=== PATIENT | male | born 1990 | race Caucasian/White ===

== ENCOUNTER → 2021-04-13 19:37 | Outpatient (CLI) | payer OTHER, SELFPAY | PROVIDERS: Visit Provider Nurse Practitioner Family | DX: Z20.822 Contact with and (suspected) exposure to COVID-19 (principal) | CPT/HCPCS: C9803; U0003; U0005 ==

== ENCOUNTER 2024-03-24 11:53 | Outpatient (CLI) | payer BC, SELFPAY ==
[2024-03-24 12:34] LABS: Basophils # 0.1 K/mm3 (0-0.2); Basophils % 1.3 % (0.1-2.0); Eosinophils # 0.6 K/mm3 (0.0-0.4); Eosinophils % 10.5 % (0.1-12.0); Hematocrit 44.7 % (42.0-52.0); Hemoglobin 15.1 g/dL (14.1-18.0); Lymphocytes # 2.2 K/mm3 (0.7-4.5); Lymphocytes % 38.6 % (10-50); Mean Corpuscular HGB Conc 33.7 g/dL (31.8-35.4); Mean Corpuscular Hemoglobin 29.7 pg (27.0-31.2); Mean Corpuscular Volume 88.2 fl (80-94); Mean Platelet Volume 7.6 fl (7.4-10.4); Monocytes # 0.4 K/mm3 (0.1-1.0); Monocytes % 6.7 % (1.7-9.3); Neutrophils # 2.5 K/mm3 (1.8-7.8); Platelet Count 255 K/mm3 (142-424); Red Blood Count 5.07 M/mm3 (4.60-6.20); Red Cell Distribution Width 13.1 % (11.5-17.5); White Blood Count 5.7 K/mm3 (4.8-10.8)
[2024-03-24 12:52] LABS: Activated Partial Thrombo Time 28.6 seconds (22.8-30.6); Fibrinogen 305 mg/dL (229.9-363.5); INR 0.96 (0.9-1.1); Prothrombin Time 10.8 seconds (10.1-12.5)
[2024-03-24 13:06] LABS: Albumin Level 4.5 g/dl (3.5-5.0); Chloride 107 mmol/L (98-107); Potassium 4.4 mmoL/L (3.5-5.1); Sodium 140 mmol/L (136-145)
[2024-03-24 13:09] LABS: Alanine Aminotransferase 61 U/L (12-78); Alkaline Phosphatase 70 U/L (38-126); Anion Gap 11.4 mEq/L (5-15); Aspartate Amino Transferase 59 U/L (17-59); Bilirubin,Total 0.5 mg/dl (0.2-1.3); Blood Urea Nitrogen 16 mg/dl (9-20); Carbon Dioxide 26 mmol/L (22.0-30.0); Cholesterol 217 mg/dl (140-200); Estimated Glomerular Filt Rate 87 ml/min (>60); GFR (African American) 105 ML/MIN (>60); Globulin 2.3 g/dL (1.3-3.2); Total Protein,Serum 6.8 g/dl (6.3-8.2); Triglycerides 173 mg/dl (30-150); VLDL Cholesterol 35 mg/dL (0-40)
[2024-03-24 13:10] LABS: Calcium 9.6 mg/dl (8.4-10.2); Chol/HDL Ratio 4.7 (1-3.5); Glucose 95 mg/dl (74-100); HDL Cholesterol 46 mg/dl (40-60)
[2024-03-24 13:21] LABS: Direct LDL Cholesterol 131.34 mg/dL (100-129)
[2024-03-24 13:26] LABS: 25-OH Vitamin D, Total 20.5 ng/mL (30-100)
[2024-03-24 13:29] LABS: HIV (1&2) Antibody Rapid NONREACTIVE (NONREACTIVE)
[2024-03-24 13:38] LABS: Thyroid Stimulating Hormone 1.24 uIU/mL (0.465-4.68)
[2024-03-24 14:15] LABS: Hemoglobin A1C 5.5 % (4.0-6.0)
[2024-03-25 09:16] LABS: HCV Ab Non Reactive (Non Reactive)
[2024-03-26 12:02] LABS: Peripheral Smear Review Scanned Result
[2024-03-26 15:10] LABS: Anti-Thrombin III Antigen 88 % (72-124); Antithrombin Activity 124 % (75-135); Factor V Activity 123 % (70-150); Protein C Functional 142 % (73-180); Protein S Functional 168 % (63-140)
== END 2024-03-24 23:59 | disposition home or self-care (01) ==
LOC: LAB 11:56
PROVIDERS: PCP Student in an Organized Health Care Education/Training Program; Visit Provider Student in an Organized Health Care Education/Training Program
DX: R07.89 Other chest pain (principal); R55 Syncope and collapse; E55.9 Vitamin D deficiency, unspecified; Z83.2 Family history of diseases of the blood and blood-forming organs and certain disorders involving the immune mechanism; Z13.21 Encounter for screening for nutritional disorder; Z13.29 Encounter for screening for other suspected endocrine disorder; Z13.1 Encounter for screening for diabetes mellitus; Z13.220 Encounter for screening for lipoid disorders; Z11.59 Encounter for screening for other viral diseases; Z11.4 Encounter for screening for human immunodeficiency virus [HIV]
CPT/HCPCS: 36415; 80050; 80053; 80061; 81241; 82306; 83036; 84443; 85025; 85220; 85300; 85301; 85302; 85306; 85384; 85610; 85730; 86803; 87389

== ENCOUNTER 2024-03-26 09:57 | Outpatient (CLI) | payer BC, SELFPAY ==
--- NOTE | 2024-03-26 10:02 | CA_ITS ---
FINAL REPORT TECHNIQUE: Color Doppler, duplex Doppler and compression sonography of the right lower extremity venous system was performed. CLINICAL HISTORY: family history of clotting factor 5 leiden (father, grandfather, uncle, and younger sibling). Right leg pain x 6 months primarily in the calf. COMPARISON: None FINDINGS: There is no evidence of deep venous thrombosis in the right lower extremity from the level of the groin to the calf. The veins are patent and compressible. IMPRESSION: No evidence of deep venous thrombosis right lower extremity. Reviewed, Interpreted and Dictated by Marco A Valero III, MD Transcribed by Agnes Nice Authenticated and [facility]
== END 2024-03-26 23:59 | disposition home or self-care (01) ==
LOC: RT 09:58
PROVIDERS: PCP Student in an Organized Health Care Education/Training Program; Visit Provider Student in an Organized Health Care Education/Training Program
DX: M79.604 Pain in right leg (principal); Z83.2 Family history of diseases of the blood and blood-forming organs and certain disorders involving the immune mechanism
CPT/HCPCS: 93971

== ENCOUNTER 2024-04-15 10:46 | Outpatient (RCR) | payer BC, SELFPAY | END 2024-04-15 23:59 | disposition home or self-care (01) | LOC: PT 10:46 | PROVIDERS: Visit Provider Neuromusculoskeletal Medicine, Sports Medicine | DX: M79.652 Pain in left thigh (principal); M79.671 Pain in right foot; M79.672 Pain in left foot; S72.322A Displaced transverse fracture of shaft of left femur, initial encounter for closed fracture; S92.301A Fracture of unspecified metatarsal bone(s), right foot, initial encounter for closed fracture; S92.302A Fracture of unspecified metatarsal bone(s), left foot, initial encounter for closed fracture | CPT/HCPCS: 97163 ==

== ENCOUNTER 2024-06-11 14:00 | Outpatient (RCR) | payer BC, SELFPAY | END 2024-06-11 23:59 | disposition home or self-care (01) | LOC: PT 14:00 | PROVIDERS: Visit Provider Neuromusculoskeletal Medicine, Sports Medicine | DX: M25.512 Pain in left shoulder (principal); M89.8X1 Other specified disorders of bone, shoulder; M25.552 Pain in left hip; M25.562 Pain in left knee; M25.572 Pain in left ankle and joints of left foot; S92.301A Fracture of unspecified metatarsal bone(s), right foot, initial encounter for closed fracture; S92.302A Fracture of unspecified metatarsal bone(s), left foot, initial encounter for closed fracture; S72.322A Displaced transverse fracture of shaft of left femur, initial encounter for closed fracture | CPT/HCPCS: 97110; 97116; 97163; 97530 ==

== ENCOUNTER 2024-07-10 14:00 | Outpatient (RCR) | payer BC, SELFPAY | END 2024-07-10 23:59 | disposition home or self-care (01) | LOC: PT 14:00 | PROVIDERS: Visit Provider Neuromusculoskeletal Medicine, Sports Medicine | DX: M89.8X1 Other specified disorders of bone, shoulder (principal); S92.301A Fracture of unspecified metatarsal bone(s), right foot, initial encounter for closed fracture; S92.302A Fracture of unspecified metatarsal bone(s), left foot, initial encounter for closed fracture; S72.322A Displaced transverse fracture of shaft of left femur, initial encounter for closed fracture | CPT/HCPCS: 97110; 97164; 97530 ==

== ENCOUNTER 2024-08-12 13:00 | Outpatient (RCR) | payer BC, SELFPAY | END 2024-08-12 23:59 | disposition home or self-care (01) | LOC: PT 13:00 | PROVIDERS: Visit Provider Neuromusculoskeletal Medicine, Sports Medicine | DX: M89.8X1 Other specified disorders of bone, shoulder (principal); S92.301A Fracture of unspecified metatarsal bone(s), right foot, initial encounter for closed fracture; S92.302A Fracture of unspecified metatarsal bone(s), left foot, initial encounter for closed fracture; S72.322A Displaced transverse fracture of shaft of left femur, initial encounter for closed fracture | CPT/HCPCS: 97110; 97164; 97530 ==

== ENCOUNTER 2024-08-21 13:00 | Outpatient (RCR) | payer BC, SELFPAY | END 2024-08-21 23:59 | disposition home or self-care (01) | LOC: PT 13:00 | PROVIDERS: Visit Provider Physician Assistant | DX: M89.8X1 Other specified disorders of bone, shoulder (principal) | CPT/HCPCS: 97110; 97530 ==

== ENCOUNTER 2024-09-17 13:57 | Outpatient (RCR) | payer BC, SELFPAY | END 2024-09-17 23:59 | disposition home or self-care (01) | LOC: PT 13:57 | PROVIDERS: Visit Provider Neuromusculoskeletal Medicine, Sports Medicine | DX: M89.8X1 Other specified disorders of bone, shoulder (principal); S92.301A Fracture of unspecified metatarsal bone(s), right foot, initial encounter for closed fracture; S92.302A Fracture of unspecified metatarsal bone(s), left foot, initial encounter for closed fracture; S72.322A Displaced transverse fracture of shaft of left femur, initial encounter for closed fracture; X58.XXXA Exposure to other specified factors, initial encounter | CPT/HCPCS: 97110; 97164 ==

== ENCOUNTER 2025-02-16 13:13 | Outpatient (CLI) | payer BC, SELFPAY ==
--- OUTSIDE RECORDS SUMMARY | 2025-02-05 08:50 | XMS_ITS | Encounter Summary ---
Author Organization [facility] Address [address] [place] [address] Care Team Providers Care Landscape Photographer Name Role Phone Maddie Melendrez APRN Primary Care Provider [phone] Reason for Referral * Consultation (Routine) - Authorized Specialty Diagnoses / Procedures Referred By Keyannaac t Referred To Contact Physical Therapy Diagnoses Closed displaced transverse fracture of shaft of left femur with routine healing, subsequent encounter Jonah Miller MD [id number] [place] [address] Phone: tel: fax: Referral ID Status Reason Start Date Expiration Date Visits Requested Visits Authorized [id number] Authorized Consult and Treat 02/05/2025 08/07/2026 1 1 Reason for Visit * Reason Comments Follow-up Follow-up Encounter Details Date Type Department Care Team (Late st Contact Info) Description 02/05/2025 9:50 AM EDT Office Visit [facility] Orthopa[facility] Surgery & Sports Medicine [address], [address] [place] [address] Jonah Miller MD [address] [facility] [address] [phone] Closed displaced transverse fracture of shaft of left femur with routine healing, subsequent encounter (Primary Dx) Social History Tobacco Use Types Packs/Day Years Used Date Smoking Tobacco: Never Smokeless Tobacco: Never Alcohol Use Standard Drinks/Week Comments Not Currently 0 (1 standard drink = 0.6 oz pur e alcohol) Humiliation, Afraid, Rape, and Kick questionnair e Answer Date Recorded Within the last year, have y ou been afraid of your partner or ex-partner? No 03/28/2024 Within the last year, have y ou been humiliated or emotionally abused in other ways by your partner or ex-partner? No Within the last year, have y ou been kicked, hit, slapped, or otherwise physically hurt by your partner or ex-partner? No 03/28/2024 Within the last year, have y ou been raped or forced to have any kind of sexual activity by your partner or ex-partner? No 03/28/2024 PHQ-2 Answer Date Recorded Patient Health Questionnaire-2 Score 0 05/21/2024 Hunger Vital Sign Answer Date Recorded Within the past 12 months, y ou worried that your food would run out before you got the money to buy more. Never true 03/28/20 24 Within the past 12 months, t he food you bought just didn't last and you didn't have money to get more. Never true 03/28/2024 PRAPARE - Transportation Answer Date Re corded In the past 12 months, has l ack of transportation kept you from medical appointments or from getting medications? No 03/16 In the past 12 months, has l ack of transportation kept you from meetings, work, or from getting things needed for daily living? No 03/28/2024 PHQ-9 Answer Date Recorded Patient Health Questionnaire-9 Score 0 05/21/2024 Housing Stability Vital Sign Answer Pan e Recorded In the last 12 months, was t here a time when you were not able to pay the mortgage or rent on time? No 03/28/2024 In the past 12 months, how m any times have you moved where you were living? 1 03/28/2024 At any time in the past 12 m [facility], were you homeless or living in a senior care (including now)? No 03/28/2024 Utilities Answer Date Recorded In the past 12 months has th e electric, gas, oil, or water company threatened to shut off services in your home? No 03/28/2024 Sex and Gender Information Value Date Recorded Sex Assigned at Not on file Legal Sex Male 8:01 PM EDT Gender Identity Not on file Sexual Orientation Not on file documented as of this encounter Last Filed Vital Signs Vital Sign Reading Time Taken Comments Blood Pressure 135/82 02/05/2025 10:05 AM EDT Pulse 86 02/05/2025 10:05 AM EDT Temperature 36.3 C (97.3 F) 02/05/2025 10:05 AM EDT Respiratory Rate - - Oxygen Saturation 95% 02/05/2025 10:05 AM EDT Inhaled Oxygen Concentration - - Weight 111 kg (245 lb) 02/05/2025 10:05 AM EDT Height 182.9 cm (6') 02/05/2025 10:05 AM EDT Body Mass Index 33.23 02/05/2025 10:05 AM EDT documented in this encounter Miscellaneous Notes * Progress Notes - Jeet Gallegos MD - 02/05/2025 9:50 AM EDT ORTHOPEDIC TRAUMA CLINIC NOTE Inj: s/p nonunion repair left clavicle with autograft DOS: 10/08/2024 S/p IMN insertion for Left femoral shaft fracture (03/27/24) Date LS: 12/01/24 Prior Plan: AAT, PT strengthening Interval History: Patient has been doing well since the last visit but does still complain of some residual stiffness and hypersensitivity of the left shoulder. Stiffness with above head activities and numbness and paresthesias over his surgical site on the scapula. He also reports that he did not ever returned back to his [employer] job and they have let him go. Exam: Left upper extremity Surgical incision is well healed, no erythema or drainage Patient has some paresthesias about the incision Motor: EPL, FPL, FDS, IO intact Sensory: SILT A/M/U/R. Vascular: Radial Pulse 2+. Hand WWP with CR <2 sec Left Lower Extremity: Weakness of hip abduction TTP about greater trochanter and distal lateral femoral condyle Knee flexion and extension TA/GSC/EHL/FHL SILT DP/SP/Sural/Saph/Tib nerve dist. cap refill <2sec, toes wwp My independent interpretation of radiographic testing shows: No signs of hardware failure or new fracture the left femur or left scapula. There is also intervalhealing of both with bony remodeling visible. Notes reviewed: ortho trauma Results of tests reviewed: previous radiographs Assessment and plan: Closed displaced transverse fracture of shaft of left femur with routine healing, subsequent encounter Orders Placed This Encounter XR Shoulder Left 2+ Views XR Femur Left 2+ Views Physical Therapy (outgoing) Follow up in about 3 months (around 05/08/2025) for With Imaging (L shoulder, L femur) , With Imaging. Patient can be activity as tolerated. We will prescribe him physical therapy with focus on strengthening of his abductors as well as range of motion and he will see us back in 3 months with repeat x-rays. All questions were answered to the patient's satisfaction Cosigned by Jonah Miller MD at 02/09/2025 10:16 PM EDT Associated attestation - Jonah Miller MD - 02/09/2025 10:16 PM EDT I saw and evaluated the patient with the resident/fellow. I discussed the case with the resident/fellow and agree with the findings and plan as documented. Jonah Miller MD documented in this encounter Plan of Treatment Upcoming Encounters Date Type Department Care Team (Late st Contact Info) Description 05/14/2025 10:20 AM EST Office Visit [facility] Orthopaedic Surgery & Sports Medicine [address] [place] [address] Jonah Miller MD [address] [place] [address] Scheduled Orders Name Type Priority Associated Diagnoses Orde r Schedule XR Shoulder Left 2+ Views Imaging Routine Closed displaced transverse fracture of shaft of left femur with routine healing, subsequent encounter Expected: 05/08/2025 (Approximate), Expires: 08/09/2026 XR Femur Left 2+ Views Imaging Routine Closed displaced transverse fracture of shaft of left femur with routine healing, subsequent encounter Expected: 05/08/2025 (Approximate), Expires: 08/09/2026 Scheduled Referrals Name Type Priority Associated Diagnoses Orde r Schedule Physical Therapy (outgoing) Outpatient Referral Routine Closed displaced transverse fracture of shaft of left femur with routine healing, subsequent encounter Expected: 05/08/2025, Expires: 08/09/2026 documented as of this encounter Visit Diagnoses Diagnosis Closed displaced transverse fracture of shaft of left femur with routine healing, subsequent encounter- Primary documented in this encounter Additional Health Concerns Assessment Noted Time PHQ-9 Depression Total Score: 0 05/21/19 25 11:08 AM EST A fall risk assessment has been complete d for the patient 02/05/2025 10:05 AM EDT A Body Mass Index follow-up plan has been documented for the patient 02/09/2025 10:16 PM EDT documented as of this encounter Care Teams Landscape Photographer Relationship Specialty Start Date End Date Maddie Melendrez APRN [address] [place] [address] PCP - General 10/22/24 documented as of this encounter
--- OUTSIDE RECORDS SUMMARY | 2025-02-05 09:10 | XMS_ITS | Encounter Summary ---
Author Organization [facility] Address [address] 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 No 03/28/2024 Utilities Answer Date Recorded In the past 12 months has th e [employer], gas, oil, or water company threatened to shut off services in your home? No 03/28/2024 Sex and Gender Information Value Date Recorded Sex Assigned at Not on file Legal Sex Male 8:01 PM EDT Gender Identity Not on file Sexual Orientation Not on file documented as of this encounter Medications at Time of Discharge acetaminophen (Tylenol Extra Strength) 500 MG tablet Take 2 tablets by mouth every 6 hours as needed for pain. 100 tablet 10/08/2024 bacitracin, 14-30g tube, 500 UNIT/GM ointment Apply to facial lacerations daily 14 g 04/02/2024 baclofen (Lioresal) 10 MG tablet 04/28/2024 clindamycin (Cleocin) 300 MG capsule 08/26/2024 methocarbamol (Robaxin) 500 MG tablet Take 1 tablet by mouth 4 times a day as needed for muscle spasms. 40 tablet 10/08/2024 naloxone (Narcan) 4 mg/0.1 mL nasal spray 1. Give 1 spray in nostril for no/slow breathing or cannot wake after opioid use 2. Call 911 3. Repeat in other nostril if symptoms continue 1 each 04/02/2024 senna-docusate sodium (Senokot-S) 8.6-50 MG tablet Take 1 tablet by mouth 2 times a day. 30 tablet 10/08/2024 tobramycin-dexam ethasone (Tobradex) ophthalmic suspension One drop to left ear once at 2200 today to finish recommended course 04/02/2024 albuterol 108 (90 Base) MCG/ACT inhaler Inhale 2 puffs 4 (four) times a day if needed for wheezing. 1 each 04/02/2024 documented as of this encounter Plan of Treatment Upcoming Encounters Date Type Department Care Team (Late st Contact Info) Description 05/14/2025 10:20 AM EST Office Visit [facility] Orthopaedic Surgery & Sports Medicine [address] [place] [address] Jonah Miller MD [address] [place] [address] documented as of this encounter Procedures Procedure Name Priority Date/Time Associated Diagnosis Comments XR FEMUR LEFT 2+ VIEWS Routine 02/05/2025 10:23 AM EDT Pain of left clavicle Pain of left femur XR CLAVICLE LEFT Routine 02/05/2025 10:2 3 AM EDT 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 No evidence of hardware complication of the left femur with healing fracture. CRITICAL RESULT: No. COMMUNICATION: Per this written report. By electronically signing this report, I, the attending physician, attest that I have personally reviewed the images/data for the above examination(s) and agree with the final edited report. Drafted by Dean Dowling MD on 02/05/2025 11:14 AM Final report signed by Roselyn [place] MD on 02/05/2025 5:06 PM Narrative 02/05/2025 5:06 PM EDT CLINICAL INDICATION: pain TECHNIQUE: XR CLAVICLE LEFT COMPARISON: Left clavicle radiographs dated 12/01/2024, left femur radiographs from 08/27/2024 FINDINGS: Left clavicle: Redemonstrated postsurgical changes with plate and screw fixation of prior midclavicular fracture with similar near-anatomic alignment and interval sclerosis and callus formation. No evidence of hardware loosening or failure. No new fractures. No acute subluxation or dislocation. Partially imaged lung and chest wall are normal. Left femur: Intramedullary nail screw fixation of the left femur. No evidence of hardware loosening or failure. Similar alignment of the proximal femoral diaphyseal fracture with continued healing. The hip and knee joints appear grossly intact. Procedure Note Roselyn [place] MD - 02/05/2025 CLINICAL INDICATION: pain TECHNIQUE: XR CLAVICLE LEFT COMPARISON: Left clavicle radiographs dated 12/01/2024, left femur radiographs from08/27/2024 FINDINGS: Left clavicle: Redemonstrated postsurgical changes with plate and screwfixation of prior midclavicular fracture with similar near-anatomicalignment and interval sclerosis and callus formation. No evidence ofhardware loosening or failure. No new fractures. No acute subluxation ordislocation. Partially imaged lung and chest wall are normal. Left femur: Intramedullary nail screw fixation of the left femur. Noevidence of hardware loosening or failure. Similar alignment of theproximal femoral diaphyseal fracture with continued healing. The hip andknee joints appear grossly intact. IMPRESSION: Redemonstrated postsurgical changes of plate and screw fixation of midleft clavicular fracture with similar near anatomic alignment and intervalprogression of healing without evidence of hardware complication. No evidence of hardware complication of the left femur with healingfracture. CRITICAL RESULT: No. COMMUNICATION: Per this written report. By electronically signing this report, I, the attending physician, attestthat I have personally reviewed the images/data for the aboveexamination(s) and agree with the final edited report. Drafted by Dean Dowling MD on 02/05/2025 11:14 AM Final report signed by Roselyn [place] MD on 02/05/2025 5:06 PM us Jonah Miller MD IMG XR PROCEDURES Final Re sult * XR Femur Left 2+ Views (02/05/2025 10:23 AM EDT) Anatomical Region Laterality Modality Lower Extremities, Femur Left Digital Radiography Impressions 02/05/2025 5:38 PM EDT Redemonstration of ORIF of healing proximal femoral fracture in unchanged alignment with no evidence of hardware loosening or failure. CRITICAL RESULT: No. COMMUNICATION: Per this written report. By electronically signing this report, I, the attending physician, attest that I have personally reviewed the images/data for the above examination(s) and agree with the final edited report. Drafted by Dean Dowling MD on 02/05/2025 11:18 AM Final report signed by Oscar Samayoa on 02/05/2025 5:38 PM Narrative 02/05/2025 5:38 PM EDT CLINICAL INDICATION: pain TECHNIQUE: XR FEMUR LEFT 2+ VIEWS COMPARISON: Left femur radiographs dated 08/27/2024 FINDINGS: Redemonstration of ORIF of proximal femoral fracture with intramedullary nail and femoral neck screws. There is been increased callus formation and blurring of the fracture line consistent with healing. No newly visualized fractures. No evidence for loosening or failure. No significant residual soft tissue swelling. No newly visualized fractures. Procedure Note Oscar Samayoa MD - 02/05/2025 CLINICAL INDICATION: pain TECHNIQUE: XR FEMUR LEFT 2+ VIEWS COMPARISON: Left femur radiographs dated 08/27/2024 FINDINGS: Redemonstration of ORIF of proximal femoral fracture with intramedullarynail and femoral neck screws. There is been increased callus formation andblurring of the fracture line consistent with healing. No newly visualizedfractures. No evidence for loosening or failure. No significant residualsoft tissue swelling. No newly visualized fractures. IMPRESSION: Redemonstration of ORIF of healing proximal femoral fracture in unchangedalignment with no evidence of hardware loosening or failure. CRITICAL RESULT: No. COMMUNICATION: Per this written report. By electronically signing this report, I, the attending physician, ralf I have personally reviewed the images/data for the aboveexamination(s) and agree with the final edited report. 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
[2025-02-16 13:05] LABS: Microscopic, Urine URINE MICROSCOPIC (MICROSCOPIC)
--- OUTSIDE RECORDS SUMMARY | 2025-02-16 13:19 | XMS_ITS | Referral Summary ---
Author Organization [employer] ([place], [place], [place], [place], [place]) Address [address] [place] [address] Care Team Providers Care Filter Press Tender Head Name Role Phone Unavailable Primary Care Provider Unavailabl e Social History Tobacco Use Types Packs/Day Years Used Date Smoking Tobacco: Never Assessed Sex and Gender Information Value Date Recorded Sex Assigned at Not on file Legal Sex Male 6:57 PM CDT Gender Identity Not on file Sexual Orientation Not on file Plan of Treatment Not on file
--- OUTSIDE RECORDS SUMMARY | 2025-02-16 13:19 | XMS_ITS | Encounter Summary ---
Author Organization [facility] Address [address] [place] [address] Care Team Providers Care Scale And Skip Car Operator Name Role Phone Beata Melendez Primary Care Provider [phone] Maddie Melendrez APRN Primary Care Provider [phone] Encounter Details Date Type Department Care Team (Late st Contact Info) Description 04/18/2024 Education [facility] General Surgery [address], [address] [place] [id number] Olesya Montes, LEATHER STRIPPING MACHINE OPERATOR & ACUTE CARE SURG [facility] ACUTE T1 Social History Tobacco Use Types Packs/Day Years [...] Date Recorded Patient Health Questionnaire-2 Score 0 04/11/2024 Hunger Vital Sign Answer Date Recorded Within [...] things needed for daily living? No 03/28/2024 Housing Stability Vital Sign Answer Pan e Recorded In the last 12 months, was t here a time when you were not able to pay the mortgage or rent on time? No 03/28/2024 In the past 12 months, how m any times have you moved where you were living? 1 03/28/2024 At any time in the past [address] [facility], were you homeless or living in [...] on file documented as of this encounter Plan of Treatment Upcoming Encounters Date Type Department Care Team (Late st Contact Info) Description 05/14/2025 10:20 AM EST Office Visit [facility] [address] [place] [address] Jonah Miller MD [address] [place] [address] documented as of this encounter Visit Diagnoses Not on filedocumented in this encounter Additional Health Concerns Assessment Noted Time A fall risk assessment has been complete d for the patient 04/11/2024 9:36 AM EST A Body Mass Index follow-up plan has been documented for the patient 04/11/2024 10:54 AM EST documented as of this encounter Care Teams Scale And Skip Car Operator Relationship Specialty Start Date End Date Beata Melendez PA [address] [place] [address] PCP - General 03/26/24 10/21/24 Maddie Melendrez APRN [address] [place] [address] PCP - General 10/22/24 documented as of this encounter
--- OUTSIDE RECORDS SUMMARY | 2025-02-16 13:19 | XMS_ITS | Encounter Summary ---
Author Organization [facility] Address [address] [place] [address] Care Team Providers Care Antique Dealer Name Role Phone Maddie Melendrez APRN Primary Care Provider [phone] Encounter Details Date Type Department Care Team (Latest Contact Info) Description 02/05/2025 Travel Social History Tobacco Use Types Packs/Day Years [...] any time in the past 12 m [facility], were you homeless or living in a group home (including now)? No 03/28/2024 Utilities Answer Date [...] Description 05/14/2025 10:20 AM EST Office Visit [facility] Orthopaedic Surgery & Sports Medicine [address] [place] [address] Jonah Miller MD [address] [place] [phone] documented as of this encounter Visit Diagnoses [...] documented as of this encounter Care Teams Antique Dealer Relationship Specialty Start Date End Date Maddie Melendrez, SHIPPER/RECEIVER [address] [place] [address] PCP - General 10/22/24 documented as of this encounter
--- OUTSIDE RECORDS SUMMARY | 2025-02-16 13:19 | XMS_ITS | Clinical Summary ---
Author Organization [employer] ([place], [place], [place], [place], [place]) Address [address] [place] [address] Care Team Providers Care Inter Fold Roll Cutter Name Role Phone Unavailable Primary Care Provider [...]
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
[2025-02-16 13:32] LABS: Hematocrit 45.8 % (42.0-52.0); Hemoglobin 15.0 g/dL (14.1-18.0); Immature Granulocytes % 0.1 %; Mean Corpuscular HGB Conc 32.8 g/dL (31.8-35.4); Mean Corpuscular Hemoglobin 28.5 pg (27.0-31.2); Mean Corpuscular Volume 87.1 fl (80-94); Nucleated Red Blood Cells % 0 %; Platelet Count 279 K/mm3 (142-424); Red Blood Count 5.26 M/mm3 (4.60-6.20); Red Cell Distribution Width-SD 38.5 fL; White Blood Count 7.4 K/mm3 (4.8-10.8)
[2025-02-16 13:49] LABS: Bilirubin,Urine Negative (Negative); Color,Urine YELLOW (Yellow); Glucose,Urine (UA) Negative (Negative); Ketones,Urine Negative (Negative); Leukocyte Esterase,Urine Negative (Negative); PH,Urine 6.0 (5.0-8.5); Protein,Urine Negative (Negative); Specific Gravity, Urine 1.025 (1.005-1.030); Urobilinogen,Urine 0.2 EU/dl (0.2)
[2025-02-16 13:54] LABS: Hemoglobin A1C 5.5 % (4.0-6.0)
[2025-02-16 14:12] LABS: Alanine Aminotransferase 66 U/L (12-78); Albumin Level 5.0 g/dl (3.5-5.0); Albumin/Globulin Ratio 1.6 (1.1-1.8); Alkaline Phosphatase 86 U/L (38-126); Anion Gap 15.2 mEq/L (5-15); Aspartate Amino Transferase 55 U/L (17-59); Bilirubin,Total 0.4 mg/dl (0.2-1.3); Blood Urea Nitrogen 12 mg/dl (9-20); Calcium 9.5 mg/dl (8.4-10.2); Carbon Dioxide 24 mmol/L (22.0-30.0); Chloride 102 mmol/L (98-107); Cholesterol 272 mg/dl (140-200); Creatinine,Serum 1.00 mg/dl (0.66-1.25); Estimated Glomerular Filt Rate 87 ml/min (>60); GFR (African American) 105 ML/MIN (>60); Globulin 3.1 g/dL (1.3-3.2); Glucose 101 mg/dl (74-100); HDL Cholesterol 46 mg/dl (40-60); Magnesium 2.0 mg/dl (1.6-2.3); Phosphorous 3.6 mg/dl (2.5-4.5); Potassium 4.2 mmoL/L (3.5-5.1); Sodium 137 mmol/L (136-145); Total Protein,Serum 8.1 g/dl (6.3-8.2); Triglycerides 167 mg/dl (30-150)
[2025-02-16 14:27] LABS: Free T4 (Free Thyroxine) 0.95 ng/dl (0.78-2.19)
[2025-02-16 14:29] LABS: WBC,Urine Occasional #/hpf (0-3)
[2025-02-16 14:30] LABS: 25-OH Vitamin D, Total 28.7 ng/mL (30-100); Bacteria,Urine Trace /lpf; Squamous Epithelial Cell,Urine Occasional #/hpf (0-5)
[2025-02-16 14:43] LABS: Thyroid Stimulating Hormone 1.42 uIU/mL (0.465-4.68)
[2025-02-16 15:02] LABS: Vitamin B12 283 pg/mL (239-931)
== END 2025-02-16 23:59 | disposition home or self-care (01) ==
LOC: LAB.DROPOF 13:13
PROVIDERS: PCP Nurse Practitioner Family; Visit Provider Nurse Practitioner Family
DX: E55.9 Vitamin D deficiency, unspecified (principal); E11.9 Type 2 diabetes mellitus without complications; E78.5 Hyperlipidemia, unspecified; E66.9 Obesity, unspecified; Z76.89 Persons encountering health services in other specified circumstances; R53.1 Weakness; G43.109 Migraine with aura, not intractable, without status migrainosus; M54.9 Dorsalgia, unspecified; G89.29 Other chronic pain; G62.9 Polyneuropathy, unspecified; S42.002A Fracture of unspecified part of left clavicle, initial encounter for closed fracture; S06.0XAA Concussion with loss of consciousness status unknown, initial encounter; V89.2XXA Person injured in unspecified motor-vehicle accident, traffic, initial encounter; F32.A Depression, unspecified; F43.10 Post-traumatic stress disorder, unspecified; F41.9 Anxiety disorder, unspecified; I10 Essential (primary) hypertension; G47.33 Obstructive sleep apnea (adult) (pediatric)
CPT/HCPCS: 80053; 80061; 81001; 82306; 82607; 83036; 83735; 84100; 84439; 84443; 85025; 87086

== ENCOUNTER 2025-03-03 13:51 | Outpatient (RCR) | payer MEDICARE, SELFPAY | END 2025-03-03 23:59 | disposition home or self-care (01) | LOC: PT 13:51 | PROVIDERS: PCP Nurse Practitioner Family; Visit Provider Orthopaedic Surgery | DX: S72.322D Displaced transverse fracture of shaft of left femur, subsequent encounter for closed fracture with routine healing (principal); X58.XXXD Exposure to other specified factors, subsequent encounter | CPT/HCPCS: 97163 ==

== ENCOUNTER 2025-03-10 15:02 | Outpatient (CLI) | payer MEDICAID, SELFPAY ==
--- OUTSIDE RECORDS SUMMARY | 2025-02-05 08:50 | XMS_ITS | Encounter Summary ---
Author Organization [facility] Address [address] [place] [address] Care Team Providers Care Outboard Motor Assembler Name Role Phone Maddie Melendrez APRN Primary Care Provider [phone] Reason for Referral * Consultation (Routine) - Authorized Specialty Diagnoses / Procedures Referred By Keyannaac t Referred To Contact Physical Therapy Diagnoses Closed displaced transverse fracture of shaft of left femur with routine healing, subsequent encounter Jonah Miller MD [id number] [place] [address] Phone: tel: fax: Referral ID Status Reason Start Date Expiration Date Visits Requested Visits Authorized [id number] Authorized Consult and Treat 02/05/2025 08/07/2026 1 1 Reason for Visit * Reason Comments Follow-up Follow-up Encounter Details Date Type Department Care Team (Late st Contact Info) Description 02/05/2025 9:50 AM EDT Office Visit [facility] [address], [address] [place] [address] Jonah Miller MD [address] [facility] [address] [phone] Closed displaced transverse fracture of shaft of [...] in the past 12 m [facility], were you homeless or living in a penitentiary (including now)? No 03/28/2024 Utilities Answer Date [...] Description 05/14/2025 10:20 AM EST Office Visit [facility] Orthopaedic Surgery & Sports Medicine [address], [address] [place] [address] Jonah Miller MD [address] [place] [address] Scheduled Orders Name Type Priority Associated Diagnoses [...] documented as of this encounter Care Teams Outboard Motor Assembler Relationship Specialty Start Date End Date Maddie Melendrez APRN [address] [place] [address] PCP - General 10/22/24 documented as of this encounter
--- OUTSIDE RECORDS SUMMARY | 2025-02-05 09:10 | XMS_ITS | Encounter Summary ---
Author Organization [facility] Address [address] [place] [address] Care Team Providers Care Senior Game Advisor Name Role Phone Maddie Melendrez APRN Primary Care Provider [phone] Encounter Details Date Type Department Care Team (Latest Contact Info) Description 02/05/2025 10:10 AM EDT - 02/05/2025 11:59 PM EDT Hospital Encounter [place] [facility] [address], [address] [place] [address] Pain of left clavicle; Pain of left [...] any time in the past 12 m [facility], were you homeless or living in a snf (including now)? No 03/28/2024 Utilities Answer Date Recorded In the past 12 months has th e [employer], gas, oil, or water company threatened to [...] Description 05/14/2025 10:20 AM EST Office Visit [facility] Orthopaedic Surgery & Sports Medicine [address], [address] [place] [address] Jonah Miller MD [address] [place] [address] documented as of this encounter [...] documented as of this encounter Care Teams Senior Game Advisor Relationship Specialty Start Date End Date Maddie Melendrez APRN [address] [place] [address] PCP - General 10/22/24 documented as of this encounter
--- NOTE | 2025-03-10 15:00 | CT_ITS ---
FINAL REPORT TECHNIQUE: Multiple axial CT sections were performed from the foramen magnum to the vertex. Coronal reformatted images were also obtained. Precontrast and postcontrast injection images were obtained. This study was performed with technique to keep radiation doses as low as reasonably achievable, (ALARA). Individualized dose reduction techniques using automated exposure control or adjustment of mA and/or kV according to the patient size were employed. CLINICAL HISTORY: memory loss, brain fog, concussion, headaches FINDINGS: There is no mass effect or midline shift. There is no hydrocephalus. There is no intracranial hemorrhage. The posterior fossa is without acute abnormality. The basilar cisterns are preserved. There are mucous retention cysts or polyps in the bilateral maxillary sinuses. No acute osseous abnormality is identified. There is no abnormal contrast-enhancement. IMPRESSION: No acute intracranial abnormality. Reviewed, Interpreted and Dictated by Debbie Figueroa MD Transcribed by Marie Justin Authenticated and [facility]
--- OUTSIDE RECORDS SUMMARY | 2025-03-10 15:06 | XMS_ITS | Clinical Summary ---
Author Organization [facility] Address [address] [place] [address] Care Team Providers Care Intake Counselor Name Role Phone Aneesh Maddie Hoda ALVARADO Primary Care Provider [phone] Allergies No known active allergies Medications bacitracin, [...] - 02/05/2025 11:59 PM EDT Hospital Encounter [facility] Radiology [address], [address] [place] [address] Pain of left clavicle; Pain of left femur; Closed displaced fracture of shaft of left clavicle with malunion, subsequent encounter Discharge Disposition: Home or Self Care 02/05/2025 9:50 AM EDT Office Visit [facility] Orthopaedic Surgery & Sports Medicine [address], [address] [place] [address] Jonah Miller MD Closed displaced transverse fracture of shaft of left femur with routine healing, subsequent encounter (Primary Dx) 02/05/2025 Travel from Last 3 Months Immunizations Immunization [...] any time in the past 12 m [facility], were you homeless or living in a assisted (including now)? No 03/28/2024 Utilities Answer Date [...] Description 05/14/2025 10:20 AM EST Office Visit [facility] Orthopaedic Surgery & Sports Medicine [address], [address] [place] [address] Jonah Miller MD [address] [place] [address] Health Maintenance Due Date Last Done Comments [...] Screenings 09/26/2024 [facility]-Adult SDOH Screenings 09/26/2024 03/28/2024 [id number] Vaccine (1 - 2024- season) 2024 [facility]-Influenza Vaccine (#1) 2024 [facility]-Depression Screening 05/21/2025 05/21/2024, 0208/2024 [facility]-DTaP,Tdap,and Td Vaccines (3 - Td or [...] this topic Medical Devices Implanted Type Area High Risk Ob Device Identifier Shelf Expiration Date Model / Serial / Lot Plate Clavcl Superior Decrsd Crv Std 10hole Lt - Sn/A - [id number] Implanted:Qty : 1 on 10/08/2024 by Jonah Miller MD at [facility] Plate Left: Shoulder [employer] ([facility])-[id number] 68 10/08/2025 [id number] / N/A / N/A Plate Variax Broad Lock 2.7mm/10 Hole - Sn/A - [id number] Implanted:Qty : 1 on 10/08/2024 by Jonah Miller MD at [facility] Plate Left: Shoulder [employer] ([facility])-[id number] 68 10/08/2025 [id number] / N/A / N/A Screw 5x37.5mm Ti [employer] Sergio Locking [employer] - [id number] Implanted:Qty : 1 on 03/27/2024 by Mehul Mckeon MD at [facility] Screw Left: Femur [employer]-[id number] 03/27/2025 1257.8338 / / Screw 5x40mm Ti [employer] Sergio Locking - [id number] Implanted:Qty : 1 on 03/27/2024 by Mehul Mckeon MD at [facility] Screw Left: Femur [employer]-[id number] 03/27/2025 1257.8340 / / Screw 2.7mm Bone T8 Full Thread L14mm - Sn/A - [id number] Implanted:Qty : 1 on 10/08/2024 by Jonah Miller MD at [facility] Screw Left: Shoulder [employer] ([facility])-1391 68 10/08/2025 [id number] / N/A / N/A Screw 2.7mm Bone T8 Full Thread L16mm - Sn/A - [id number] Implanted:Qty : 2 on 10/08/2024 by Jonah Miller MD at [facility] Screw Left: Shoulder [employer] ([facility])-1391 68 10/08/2025 [id number] / N/A / N/A Screw 2.7mm#Locking T8 Full Thread L18mm - Sn/A - [id number] Implanted:Qty : 1 on 10/08/2024 by Jonah Miller MD at [facility] Screw Left: Shoulder [employer] ([facility])-1391 68 10/08/2025 [id number] / N/A / N/A Screw 2.7mm#Locking T8 Full Thread L22mm - Sn/A - [id number] Implanted:Qty : 1 on 10/08/2024 by Jonah Miller MD at [facility] Screw Left: Shoulder [employer] ([facility])-1391 68 10/08/2025 [id number] / N/A / N/A Screw 2.7mm#Locking T8 Full Thread L14mm - Sn/A - [id number] Implanted:Qty : 1 on 10/08/2024 by Jonah Miller MD at [facility] Screw Left: Shoulder [employer] ([facility])-1391 68 10/08/2025 [id number] / N/A / N/A Screw 2.7mm#Locking T8 Full Thread L16mm - Sn/A - [id number] Implanted:Qty : 1 on 10/08/2024 by Jonah Miller MD at [facility] Screw Left: Shoulder [employer] ([facility])-1391 68 10/08/2025 [id number] / N/A / N/A Screw 2.7mm#Locking T8 Full Thread L12mm - Sn/A - [id number] Implanted:Qty : 1 on 10/08/2024 by Jonah Miller MD at [facility] Screw Left: Shoulder [employer] ([facility])-1391 68 10/08/2025 [id number] / N/A / N/A Screw 3.5mm Bone T10 Full Thread L14mm - Sn/A - [id number] Implanted:Qty : 1 on 10/08/2024 by Jonah Miller MD at [facility] Screw Left: Shoulder [employer] ([facility])-1391 68 10/08/2025 [id number] / N/A / N/A Screw 3.5mm Bone T10 Full Thread L12mm - Sn/A - [id number] Implanted:Qty : 1 on 10/08/2024 by Jonah Miller MD at [facility] Screw Left: Shoulder [employer] ([facility])-1391 68 10/08/2025 [id number] / N/A / N/A Screw 3.5mm#Locking T10 Full Thread L16mm - Sn/A - [id number] Implanted:Qty : 3 on 10/08/2024 by Jonah Miller MD at [facility] Screw Left: Shoulder [employer] ([facility])-1391 68 10/08/2025 [id number] / N/A / N/A Screw 3.5mm#Locking T10 Full Thread L12mm - Sn/A - [id number] Implanted:Qty : 1 on 10/08/2024 by Jonah Miller MD at [facility] Screw Left: Shoulder [employer] ([facility])-1391 68 10/08/2025 [id number] / N/A / N/A Screw 3.5mm#Locking T10 Full Thread L20mm - Sn/A - [id number] Implanted:Qty : 1 on 10/08/2024 by Jonah Miller MD at [facility] Screw Left: Shoulder [employer] ([facility])-1391 68 10/08/2025 [id number] / N/A / N/A Screw 3.5mm#Locking T10 Full Thread L14mm - Sn/A - [id number] Implanted:Qty : 1 on 10/08/2024 by Jonah Miller MD at [facility] Screw Left: Shoulder [employer] ([facility])-1391 68 10/08/2025 [id number] / N/A / N/A Guidewire Drill-Point 3.2mm 400mm [employer] - S. - [id number] Implanted:Qty : 3 on 03/27/2024 by Mehul Mckeon MD at [facility] Wire Left: Femur [employer]-[id number] 03/27/2025 6257.0022 / . / Nail Antgr Femoral 76j130bn Gt Lt Ti - [id number] Implanted:Qty : 1 on 03/27/2024 by Mehul Mcekon MD at [facility] Left: Femur [employer]-[id number] 03/21/2032 1257.3140S / / [id number] Screw Recon Locking 92l39ak Ti - [id number] Implanted:Qty : 2 on 03/27/2024 by Mehul Mckeon MD at [facility] Left: Femur [employer]-[id number] 03/27/2025 1257.9190 / / ?Guidewire 3.2mm Drill-Point 285mm [employer] - [id number] Implanted:Qty : 1 on 03/27/2024 by Mehul Mckeon MD at [facility] Left: Femur [employer]-[id number] 03/27/2025 6257.0032 / / Tissue Pliafix Prime Dbm 5c - [id number] - [id number] Implanted:Qty : 1 on 10/08/2024 by Jonah Miller MD at [facility] Left: [id number] 08/20/2029 [id number] / [id number] / [id number] Procedures Procedure Name Priority Date/Time Associated Diagnosis Comments XR CLAVICLE LEFT Routine 02/05/2025 10:2 3 AM EDT Closed displaced fracture of shaft of left clavicle with malunion, subsequent encounter XR FEMUR LEFT 2+ VIEWS Routine 10:23 AM EDT Pain of left clavicle Pain of left femur HEPATITIS C ANTIBODY - ED W/REFLEX TO [...] HIV 1/2 Differentiation (03/26/2024 2:12 PM EST) HIV 1 & 2 Antibody/Antigen Screen Non Reactive Non Reactive 03/26/2024 3:09 PM EST [facility] Comment:Screening for HIV 1 & 2 antibodies, and P24 antigen is NONREACTIVE. No confirmatory testing is required. Blood Venous blood specimen / Unknown Venipuncture / Unknown 03/26/2024 2:12 PM EST 03/26/2024 2:26 PM EST us Robert Trammell MD LAB BLOOD ORDERABLES Final Result [facility] [address] [place] [address] * Hepatitis C Antibody - ED (03/26/2024 2:12 PM EST) Hepatitis C Antibody Negative Negative 03/26/2024 3:09 PM EST [facility] Blood Venous blood specimen / Unknown Venipuncture / Unknown 03/26/2024 2:12 PM EST 03/26/2024 2:26 PM EST us Robert Trammell MD LAB BLOOD ORDERABLES Final Result [facility] [address] [place] [address] from Last 3 Months or Most Recently Relevant to Health Maintenance Insurance [employer] [place] Advance Directives * Full Code (Latest Code Status on File) Date Activated Date Inactivated Comments 03/26/2024 8:29 PM 04/02/2024 8:42 PM Question Answer Comments Patient has decision-making capacity? Yes Care Teams Intake Counselor Relationship Specialty Start Date End Date Maddie Melendrez, CHRISTIANO [address] [place] [address] PCP - General 10/22/24
--- OUTSIDE RECORDS SUMMARY | 2025-03-10 15:06 | XMS_ITS | Encounter Summary ---
Author Organization [facility] Address [address] [place] [address] Care Team Providers Care Truck Assembler Name Role Phone Maddie Melendrez APRN Primary Care Provider [phone] Encounter Details Date Type Department Care Team [...] any time in the past 12 m [facility], were you homeless or living [...] Description 05/14/2025 10:20 AM EST Office Visit [facility] Orthopaedic Surgery & Sports Medicine [address], [address] [place] [address] Jonah Miller MD [address] [place] [address] documented as of this encounter Visit Diagnoses [...] documented as of this encounter Care Teams Truck Assembler Relationship Specialty Start Date End Date Maddie Melendrez, REGIONAL SAFETY MANAGER [address] [place] [address] PCP - General 10/22/24 documented as of this encounter
--- OUTSIDE RECORDS SUMMARY | 2025-03-10 15:06 | XMS_ITS | Encounter Summary ---
Author Organization [facility] Address [address] [place] [address] Care Team Providers Care Radiographer Technologist Name Role Phone Beata Melendez Primary Care Provider [phone] Maddie Melendrez APRN Primary Care Provider [phone] Encounter Details Date Type Department Care Team (Late st Contact Info) Description 04/18/2024 Education [facility] General Surgery [address], [address] [place] [id number] Olesya Montes, WHITE KID BUFFER & ACUTE CARE SURG [facility] ACUTE T1 None Social History Tobacco Use Types Packs/Day Years [...] time in the past 12 m [facility], were you homeless or living in a intermediate (including now)? No 03/28/2024 Utilities Answer Date [...] Description 05/14/2025 10:20 AM EST Office Visit [facility]opa[facility] Surgery [facility] Sports Medicine [address], [address] [place] [address] Jonah Miller MD [address] [place] [address] documented as of this encounter Visit Diagnoses Not on filedocumented in this encounter Additional Health Concerns Assessment Noted Time A fall risk assessment has been complete d for the patient 04/11/2024 9:36 AM EST A Body Mass Index follow-up plan has been documented for the patient 04/11/2024 10:54 AM EST documented as of this encounter Care Teams Radiographer Technologist Relationship Specialty Start Date End Date Beata Melendez PA [address] [place] [address] PCP - General 03/26/24 10/21/24 Maddie Melendrez APRN [address] [place] [address] PCP - General 10/22/24 documented as of this encounter
--- OUTSIDE RECORDS SUMMARY | 2025-03-10 15:06 | XMS_ITS | Data Portability ---
Author Organization [facility] Address [address] [place] [address] Care Team Providers Care Travel Attendants Name Role Phone RHONA CRUZ Screen Tacker [phone] Assessment No assessment recorded. Plan of Treatment Reminders Order Date Submit Date Provider Last Modified By Organization Details Last Modified Time Details Appointments None record ed. Lab None record ed. Referral None record ed. Procedures None record ed. Surgeries None record ed. Imaging None record ed. Medication Orders None record ed. Patient TargetsNo targets recorded. Patient Instructions Encounter Date Encounter Id Patient Instructions Last Modified By Organization Details Last Modified Time 02/11/2020 [id number] work status report* ddome Not available 02/11/2020 15:40:35 Reason for Referral None Reported. Problems No Known Problems Medical Equipment None Reported. Allergies No known drug allergies Medications Name Sig Start Date Stop Date Status Note LastModified by Organization Details LastModified Time Concord 10 mg-325 mg tablet 2019 completed Medication Description : acetaminoph en-hydrocod one; Route:oral; refills:0; Quantity:6 tablet Not Available Not Available Not Available Vitals Date Recorded Body height Body mass index (BMI) Body weight Provider Name and Address Organization Details Last Updated DateTime 02/11/2020 182.88 cm 27.1 kg/m2 20814.47 g Suraj Lambert [facility] 02/11/2020 14:35:20 Social History None recorded. Functional Status None recorded. Mental Status None recorded. Family History Relationship Description Onset Age of this Age Resolved Age Notes LastModified by Organization Details LastModified Time Father Family history of blood coagulation disorder blood clots slaha Not available 02/11/2020 14:39:58 Medical History Condition Response Allergies/Hayfever N Other N Gout N Anxiety/Depression N Thyroid Disease N Heart Conditions N Kidney Stones N Hernia N Migraines N COPD N Glaucoma N Pneumonia N Skin Problems N Immune System Disorder N Anesthesia Complications N Heart Attack ([place]) N Mental Illness N Neurological Problems N Diabetes N Rheumatic Fever N Bleeding Disorder N Arthritis N Seizures/Epilepsy N Blood Clot N Tuberculosis N Genetic Disorder N AIDS/HIV N Cancer N Stroke N Asthma N Blood Thinners N Alcohol Overuse/Alcohol Abuse N Sleep Apnea N High Cholesterol N Liver Disease N Included as Review of Systems N Hypertension N Osteoporosis N Kidney Disease N Past Encounters Encounter ID Performer Location Encounter Start Date Encounter Closed Date Diagnosis/Indication Diagnosis SNOMED-CT Code Diagnosis ICD10 Code Diagnosis IMO Codes Diagnosis Note [id number] DAYNE OSULLIVAN MD [facility] [address] [place] [address] 02/11/2020 14:00:20 02/11/2020 16:23:13 Sprain of right ankle [id number] S93.401A Mr Alcon jones has sustained an anterolate ral ankle sprain with residual anterior ankle impingemen t. I recommend continued gentle range of motion and strengthen ing. If he has persistent symptoms he may require arthroscop ic evaluation and treatment of the ankle. Health Concerns Section Related Observation LastModified by Organization Detai ls LastModified Time None Recorded Concern Status LastModified by Organization Details LastModified Time None Recorded Advance Directives Directive None Recorded Payers Insurance Date Sequence Insurance Name Policy Number Policy Anton Covered Member ID Anton Member ID Guarantor Name 06/20/2018 1 *SELF PAY* Layla LeónMorris 02/11/2020 [employer]IDENT [employer]D [employer] Henok Jhon Alexandra Notes Date Note Type Note Provider Name and Address Organization Details Recorded Time 02/11/2020 text/html Mr Morris presents today for evaluation of painful right ankle. He has had prior ankle injury in June 2019. He has had persistent pain since that time. He had a corticosteroid injection of the ankle in December which did help his pain somewhat. He denies locking, catching, giving away, or significant swelling since his injection but has continuing pain. He points to the anterior lateral ankle as the area of pain. He denies paresthesia or radicular symptoms and he denies other musculoskeletal complaints associated with the ankle injury. DAYNE OSULLIVAN MD [address] [place] [address], [id number], [facility] 03/07/2020 09:08:44
[2025-03-10] MEDS: SODIUM CHLORIDE 0.9% 10ML SYR (RAD ONLY) 10 ML IV (15:27)
[2025-03-10] MEDS: IOPAMIDOL-300 (61%) 100ML VIAL 100 ML IV (15:27)
== END 2025-03-10 23:59 | disposition home or self-care (01) ==
LOC: RAD 15:03
PROVIDERS: PCP Nurse Practitioner Family; Visit Provider Nurse Practitioner Family
DX: G43.109 Migraine with aura, not intractable, without status migrainosus (principal); R41.3 Other amnesia
CPT/HCPCS: 70470; Q9967

== ENCOUNTER 2025-04-13 15:00 | Outpatient (RCR) | payer MEDICAID, SELFPAY | END 2025-04-13 23:59 | disposition home or self-care (01) | LOC: PT 15:00 | PROVIDERS: PCP Nurse Practitioner Family; Visit Provider Orthopaedic Surgery | DX: S72.322D Displaced transverse fracture of shaft of left femur, subsequent encounter for closed fracture with routine healing (principal) | CPT/HCPCS: 97530 ==